=== PATIENT | female | born 1965 | race Caucasian/White ===

== ENCOUNTER 2022-07-26 19:14 | Observation (INO) | payer MEDICAID ==
[2022-07-26 20:14] LABS: Absolute Neutrophil Ct (ANC) 4.08 x10^3/uL (1.4-6.9); Basophil (Absolute #) 0.03 x10^3/uL (0-0.4); Eosinophil % 3.5 % (0.00-5.0); Eosinophil (Absolute #) 0.23 x10^3/uL (0-0.5); Hematocrit 36.2 % (35-47); Hemoglobin 10.8 g/dL (12.0-16.0); Lymphocyte (Absolute #) 1.81 x10^3/uL (1.0-4.6); Lymphocytes % 27.9 % (24.0-44.0); Mean Cell Volume 86.6 fL (78-100); Mean Corpuscular Hemoglobin 25.8 pg (26-32); Mean Corpuscular Hgb Concent. 29.8 g/dL (32-36); Mean Platelet Volume 9.7 fL (7.5-11.0); Monocyte (Absolute #) 0.32 x10^3/uL (0.0-1.3); Monocytes % 4.9 % (0.0-12.0); Neutrophil % 62.9 % (36.0-66.0); Platelet Count 317 x10^3/uL (150-450); Red Blood Count 4.18 x10^6/uL (4.1-5.4); Red Cell Distribution Width 15.6 % (11.5-14.0); White Blood Count 6.5 x10^3/uL (4.0-10.5)
[2022-07-26 20:41] LABS: ALBUMIN 3.7 g/dL (3.5-5.0); ALKALINE PHOSPHATASE 131 U/L (38-126); ANION GAP 8.5 MEQ/L (5-15); BLOOD UREA NITROGEN 10 mg/dL (7-17); CHLORIDE 101 mmol/L (98-107); Calcium 8.4 mg/dL (8.4-10.2); Carbon Dioxide 28 mmol/L (22-30); Creatinine 1 0.88 mg/dL (0.52-1.04); EST GLOMERULAR FILTRATION RATE > 60.0 ML/MIN; Glucose 199 mg/dL (74-106); NT PRO BNP 348 pg/mL (0-900); SGOT/AST 20 U/L (14-36); SGPT/ALT 17 U/L (0-35); SODIUM 133 mmol/L (137-145); Total Protein 6.8 g/dL (6.3-8.2)
--- NOTE | 2022-07-26 21:51 | ERPHSYRPT ---
- History of Present Illness Time Seen by Provider: 07/26/22 19:25 Historian: patient Exam Limitations: no limitations Patient Subjective Stated Complaint: pt states that for the last hour she has been having chest discomfort and states "i feel weird, like Im in outer space", statesleft hand feels funny, and she feels tired. states she takes lots of meds that make her dizzy. Triage Nursing Assessment: pt arrived by ambulance, transferred to bed from cot, pt is laying flat in bed, no sob, some CP she rates as 5/10. pt is in NSR on [address] monitor. Physician History: Patient is a 56-year-old female presents emergency department for evaluation of chest pain and dizziness. Chest pain lasted for approximately 1 hour. pain started approximately 1 hour prior to arrival. Patient called 911. EMS administered 481 mg aspirin. Chest pain described as an ache that is substernal. Pain rated 5 out of 10. No trauma no fever. Patient states pain radiates to her left arm and hand. Patient currently asymptomatic. No active chest pain. Symptoms are mild to moderate in intensity. No specific worsening improving factors. Patient denies a history of the same. She voices no other complaints or concerns at this time. Portions of this note were created with voice recognition technology. There may be grammatical, spelling, punctuation or sound alike errors Timing/Duration: today Activities at Onset: none Quality: aching Location: substernal Chest Pain Radiation: arm Severity of Pain-Max: moderate Severity of Pain-Current: mild Modifying Factors: Improves With: nothing Associated Symptoms: denies symptoms Prior Chest Pain/Cardiac Workup: no prior chest pain Nitro Today/Relief: no nitro taken today Aspirin Treatment Today: 81 mg x 4 Allergies/Adverse Reactions: No Known Drug Allergies Allergy (Unverified 07/26/22 19:32) Immunizations Up to Date: No Travel Risk - International Travel Have you traveled outside of the country in past 3 weeks: No - Coronavirus Screening Are you exhibiting any of the following symptoms?: No Close contact with a COVID-19 positive Pt in past 14-21 Days: No - Vaccine Status Have you recieved a Covid-19 vaccination: Yes Wall Insulation Sprayer: Unknown - Vaccination Dates Date of 2cond Vaccination (if applicable): unknown Dates if Unknown: unknown - Review of Systems Constitutional: No Symptoms, No Fever, No Chills Eyes: No Symptoms Ears, Nose, & Throat: No Symptoms Respiratory: No Symptoms, No Cough, No Dyspnea Cardiac: No Symptoms, No Chest Pain, No Edema, No Syncope Abdominal/Gastrointestinal: No Symptoms, No Abdominal Pain, No Nausea, No Vomiting, No Diarrhea Genitourinary Symptoms: No Symptoms, No Dysuria Musculoskeletal: No Symptoms, No Back Pain, No Neck Pain Skin: No Symptoms, No Rash Neurological: No Symptoms, No Dizziness, No Focal Weakness, No Sensory Changes Psychological: No Symptoms Endocrine: No Symptoms Hematologic/Lymphatic: No Symptoms Immunological/Allergic: No Symptoms All Other Systems: Reviewed and Negative - Past Medical History Pertinent Past Medical History: Yes Cardiac History: High Cholesterol, Hypertension Endocrine Medical History: Diabetes Type II, Hypothyroidism Psycho-Social History: Anxiety, Depression Other Medical History: PTSD - Past Surgical History Past Surgical History: Yes Gastrointestinal: Cholecystectomy, Hernia Repair Other Surgical History: breast reduction, eye and nose surgery - Social History Smoking Status: Never smoker Drug Use: none Patient Lives Alone: No - Nursing Vital Signs Nursing Vital Signs: Initial Vital Signs Temperature 97.2 F 07/26/22 19:15 Pulse Rate 74 07/26/22 19:15 Respiratory Rate 16 07/26/22 19:15 Blood Pressure 134/104 07/26/22 19:15 O2 Sat by Pulse Oximetry 97 07/26/22 19:15 Pain Scale Pain Intensity 0 - Physical Exam General Appearance: no apparent distress, alert Eye Exam: PERRL/EOMI, eyes nml inspection Ears, Nose, Throat Exam: normal ENT inspection, TMs normal, pharynx normal, moist mucous membranes Neck Exam: normal inspection, non-tender, supple, full range of motion Respiratory Exam: normal breath sounds, lungs clear, airway intact, No respiratory distress Cardiovascular Exam: regular rate/rhythm, normal heart sounds, normal peripheral pulses Gastrointestinal/Abdomen Exam: soft, normal bowel sounds, No tenderness, No mass Back Exam: normal inspection, No CVA tenderness, No vertebral tenderness Extremity Exam: normal inspection, normal range of motion Neurologic Exam: alert, oriented x 3, cooperative, normal mood/affect, sensation nml, No motor deficits Skin Exam: normal color, warm, dry Lymphatic Exam: No adenopathy SpO2 Interpretation: normal SpO2: 95 O2 Delivery: Room Air - Course Nursing assessment & vital signs reviewed: Yes EKG Interpreted by Me: RATE (72), Sinus Rhythm, NORMAL AXIS, NORMAL INTERVALS - Radiology Exams Chest X-ray Interpretation: Interpreted by me (Normal chest x-ray) Ordered Tests: Active Orders 24 hr Category Date Time Status Peg Driver STAT Care 07/26/22 19:35 Active EKG-ER Only STAT Care 07/26/22 19:34 Active IV Insertion STAT Care 07/26/22 19:34 Active Pulse Oximetry (ED) STAT Care 07/26/22 19:34 Active CHEST 1 VIEW (PORTABLE) Stat Exams 07/26/22 19:35 Taken CBC W DIFF Stat Lab 07/26/22 20:10 Completed CMP Stat Lab 07/26/22 20:10 Completed NT PRO BNP Stat Lab 07/26/22 20:10 Completed TROPONIN Q4H Lab 07/26/22 20:10 Completed TROPONIN Q4H Lab 07/26/22 23:55 Completed TROPONIN Q4H Lab 07/27/22 03:45 Ordered UA W/RFX UR CULTURE Stat Lab 07/26/22 21:33 Completed Transfer Order Routine Transfer 07/27/22 Ordered Medication Summary Discontinued Medications Generic Name Dose Route Start Last Admin Trade Name Freq PRN Reason Stop Dose Admin Nitroglycerin 1 gm 07/27/22 02:19 07/27/22 02:22 Nitroglycerin 1 Gm Packet TOP 07/27/22 02:20 1 gm STAT ONE Administration Nitroglycerin Confirm 07/27/22 02:22 Nitroglycerin 1 Gm Packet Administered 07/27/22 02:23 Dose 1 gm .ROUTE .STK-MED ONE Lab/Rad Data: Laboratory Result Diagrams 07/26/22 20:10 07/26/22 20:10 Laboratory Results 07/27/22 07/26/22 07/26/22 Range/Units 01: 23:55 21:33 WBC (4.0-10.5) x10^3/uL RBC (4.1-5.4) x10^6/uL Hgb (12.0-16.0) g/dL Hct (35-47) % MCV (78-100) fL MCH (26-32) pg MCHC (32-36) g/dL RDW (11.5-14.0) % Plt Count (150-450) x10^3/uL MPV (7.5-11.0) fL Gran % (36.0-66.0) % Immature Gran % (Auto) (0.00-0.4) % Nucleat RBC Rel Count (0.00-0.1) % Eos # (Auto) (0-0.5) x10^3/uL Immature Gran # (Auto) (0.00-0.03) x10^3u/L Absolute Lymphs (auto) (1.0-4.6) x10^3/uL Absolute Monos (auto) (0.0-1.3) x10^3/uL Absolute Nucleated RBC (0.00-0.01) x10^3u/L Lymphocytes % (24.0-44.0) % Monocytes % (0.0-12.0) % Eosinophils % (0.00-5.0) % Basophils % (0.0-0.4) % Absolute Granulocytes (1.4-6.9) x10^3/uL Basophils # (0-0.4) x10^3/uL Sodium (137-145) mmol/L Potassium (3.5-5.1) mmol/L Chloride (98-107) mmol/L Carbon Dioxide (22-30) mmol/L Anion Gap (5-15) MEQ/L BUN (7-17) mg/dL Creatinine (0.52-1.04) mg/dL Estimated GFR ML/MIN Glucose (74-106) mg/dL Calcium (8.4-10.2) mg/dL Total Bilirubin (0.2-1.3) mg/dL AST (14-36) U/L ALT (0-35) U/L Alkaline Phosphatase (38-126) U/L Troponin I < 0.012 (0.000-0.034) ng/mL NT-Pro-B Natriuret Pep (0-900) pg/mL Serum Total Protein (6.3-8.2) g/dL Albumin (3.5-5.0) g/dL Urine Color Yellow (Yellow) Urine Appearance Clear (Clear) Urine pH 6.5 (4.6-8.0) Ur Specific [place] >=1.030 A (1.005-1.030) Urine Protein Negative (Negative) Urine Glucose (UA) >=1000 A (Negative) mg/dL Urine Ketones Negative (Negative) Urine Blood Trace (Negative) Urine Nitrite Negative (Negative) Urine Bilirubin Negative (Negative) Urine Urobilinogen 0.2 (0.2) mg/dL Ur Leukocyte Esterase Negative (Negative) U Hyaline Cast (Auto) 0-2 (0-2) /LPF Urine Microscopic RBC 6-10 A (0-5) /HPF Urine Microscopic WBC 0-2 (0-5) /HPF Ur Epithelial Cells None Seen (None Seen) /HPF Urine Bacteria None Seen (None Seen) /HPF Urine Culture Reflexed NO (NO) Influenza Type A Ag NEGATIVE (NEGATIVE) Influenza Type B Ag NEGATIVE (NEGATIVE) RSV (PCR) NEGATIVE (Negative) SARS-CoV-2 (PCR) NEGATIVE (NEGATIVE) 07/26/22 07/26/22 07/26/22 Range/Units 20:10 20:10 20:10 WBC 6.5 (4.0-10.5) x10^3/uL RBC 4.18 (4.1-5.4) x10^6/uL Hgb 10.8 L (12.0-16.0) g/dL Hct 36.2 (35-47) % MCV 86.6 (78-100) fL MCH 25.8 L (26-32) pg MCHC 29.8 L (32-36) g/dL RDW 15.6 H (11.5-14.0) % Plt Count 317 (150-450) x10^3/uL MPV 9.7 (7.5-11.0) fL Gran % 62.9 (36.0-66.0) % Immature Gran % (Auto) 0.3 (0.00-0.4) % Nucleat RBC Rel Count 0.0 (0.00-0.1) % Eos # (Auto) 0.23 (0-0.5) x10^3/uL Immature Gran # (Auto) 0.02 (0.00-0.03) x10^3u/L Absolute Lymphs (auto) 1.81 (1.0-4.6) x10^3/uL Absolute Monos (auto) 0.32 (0.0-1.3) x10^3/uL Absolute Nucleated RBC 0.00 (0.00-0.01) x10^3u/L Lymphocytes % 27.9 (24.0-44.0) % Monocytes % 4.9 (0.0-12.0) % Eosinophils % 3.5 (0.00-5.0) % Basophils % 0.5 (0.0-0.4) % Absolute Granulocytes 4.08 (1.4-6.9) x10^3/uL Basophils # 0.03 (0-0.4) x10^3/uL Sodium 133 L (137-145) mmol/L Potassium 4.0 (3.5-5.1) mmol/L Chloride 101 (98-107) mmol/L Carbon Dioxide 28 (22-30) mmol/L Anion Gap 8.5 (5-15) MEQ/L BUN 10 (7-17) mg/dL Creatinine 0.88 (0.52-1.04) mg/dL Estimated GFR > 60.0 ML/MIN Glucose 199 H (74-106) mg/dL Calcium 8.4 (8.4-10.2) mg/dL Total Bilirubin 0.30 (0.2-1.3) mg/dL AST 20 (14-36) U/L ALT 17 (0-35) U/L Alkaline Phosphatase 131 H (38-126) U/L Troponin I < 0.012 (0.000-0.034) ng/mL NT-Pro-B Natriuret Pep 348 (0-900) pg/mL Serum Total Protein 6.8 (6.3-8.2) g/dL Albumin 3.7 (3.5-5.0) g/dL Urine Color (Yellow) Urine Appearance (Clear) Urine pH (4.6-8.0) Ur Specific [place] (1.005-1.030) Urine Protein (Negative) Urine Glucose (UA) (Negative) mg/dL Urine Ketones (Negative) Urine Blood (Negative) Urine Nitrite (Negative) Urine Bilirubin (Negative) Urine Urobilinogen (0.2) mg/dL Ur Leukocyte Esterase (Negative) U Hyaline Cast (Auto) (0-2) /LPF Urine Microscopic RBC (0-5) /HPF Urine Microscopic WBC (0-5) /HPF Ur Epithelial Cells (None Seen) /HPF Urine Bacteria (None Seen) /HPF Urine Culture Reflexed (NO) Influenza Type A Ag (NEGATIVE) Influenza Type B Ag (NEGATIVE) RSV (PCR) (Negative) SARS-CoV-2 (PCR) (NEGATIVE) - Progress Progress: improved Air Movement: good Progress Note: Patient's heart score is 4 COVID-negative. Case discussed with Dr. Steven excepts admission to [facility]. Patient is a 56-year-old female presents to our emergency department for evaluation of chest pain. Chest pain started prior to arrival. Patient's pain was acute in nature. Symptoms were moderate in intensity. Symptoms are moderate in complexity. Patient has comorbidities that contribute to her symptoms including diabetes hypercholesterolemia and high blood pressure. Patient has a BMI of 45. Test ordered. Test results reviewed. Test results were used to formulate medical decision making. Patient received 4 81 mg tablets of aspirin via EMS. Pain well controlled at this time. Nitropaste administered as well in our ED. Troponin negative x2. Heart score 4. Patient will be admitted for further evaluation and treatment. Level of EM service provided was moderate. Complexity of the problem is moderate. Complexity of data reviewed and analyzed is moderate. Complicati on/morbidity/mortality was moderate. No critical care time. Patient serves as an independent historian. Patient agrees to admission at [facility] for further evaluation and treatment. Case discussed Dr. Steven who accepts admission. Portions of this note were created with voice recognition technology. There may be grammatical, spelling, punctuation or sound alike errors Blood Culture(s) Obtained: No Antibiotics given: No Discussed with : Marilyn Will see patient in: office Counseled pt/family regarding: lab results, diagnosis, rad results - Departure Departure Disposition: Observation Clinical Impression: ACS (acute coronary syndrome), Chest pain, Dizziness Condition: Stable Critical Care Time: No Referrals: SHYLA MURRELL, ADMINISTRATION DEAN [Primary Care Provider] - Follow up/PCP as directed
[2022-07-26 22:04] LABS: Appearance Clear (Clear); Bacteria None Seen /HPF (None Seen); Bilirubin Negative (Negative); Blood Trace (Negative); Epithelial Cells None Seen /HPF (None Seen); Glucose, Urine >=1000 mg/dL (Negative); Hyaline Casts 0-2 /LPF (0-2); Ketones Negative (Negative); Leukocyte Esterase Negative (Negative); Nitrite Negative (Negative); Ph 6.5 (4.6-8.0); Protein,Urine Dip Negative (Negative); Specific Gravity >=1.030 (1.005-1.030); Urobilinogen 0.2 mg/dL (0.2); WBC 0-2 /HPF (0-5)
[2022-07-26 22:12] LABS: ADD URINE CULTURE? NO (NO)
[2022-07-27 01:59] LABS: INFLUENZA A NEGATIVE (NEGATIVE); INFLUENZA B NEGATIVE (NEGATIVE); RESPIRATORY SYNCTIAL VIRUS NEGATIVE (Negative); SARS-CoV-2 Xpert Express NEGATIVE (NEGATIVE)
[2022-07-27] MEDS ORDERED: NITRO-BID 2% UD PACKETS TOP ONE (02:19)
[2022-07-27] MEDS ORDERED: NITRO-BID 2% UD PACKETS ONE (02:22)
[2022-07-27] MEDS ORDERED: MAALOX ES 30 ML UNIT DOSE PO PRN (02:40)
[2022-07-27] MEDS ORDERED: Senokot-S Tablet PO PRN (02:40)
[2022-07-27] MEDS ORDERED: Zofran 4 MG/2 ML VIAL IV PRN (02:40)
[2022-07-27] MEDS ORDERED: MILK OF MAGNESIA 30 ML PO PRN (02:40)
[2022-07-27] MEDS: TYLENOL 325 MG PO PRN ×2 (04:39→16:47)
[2022-07-27 04:56] LABS: Risk Ratio 2.5
--- NOTE | 2022-07-27 08:40 | XRAY ---
Indication: Chest pain. Comparison: None Portable chest demonstrates normal heart and lungs. Bony thorax intact with mild degenerative changes.
--- NOTE | 2022-07-27 09:44 | PCM.HP ---
History of Present Illness - Chief Complaint Chief Complaint: ACS, Chest pain History of Present Illness: is a 56 year old female patient of [employer] Amira Womack who presented to ER c/o chest pain and dizziness. Chest pain lasted for approximately 1 hour. pain started approximately 1 hour prior to arrival. Patient called 911. EMS administered 481 mg aspirin. Chest pain described as an ache in substernal area into left arm rates it at 5 out of 10, denies trauma ,no fever. Patient currently asymptomatic. No specific worsening improving factors. Patient denies a history of the same. Staes her Mother had a heart attack at age 61.Patient admits to her nurse on admit to [facility] that she took 6 of 8 Trazadone tabs last week hoping she would not wake up.States she had a fight with her girlfriend. Currently denies thoughts of suicide. States she has been seeing a councelor at [facility] in [place]. - Review of Systems Constitutional: No Symptoms Eyes: No Symptoms Ears, Nose, & Throat: No Symptoms Respiratory: No Symptoms Cardiac: Chest Pain Abdominal/Gastrointestinal: No Symptoms Genitourinary Symptoms: Vaginal Discharge (white yeast per patient) Musculoskeletal: Other (ribs tender left side if pushes on them) Skin: No Symptoms Neurological: Headache (sinus pressure) Psychological: Other (see HPI) Endocrine: No Symptoms Hematologic/Lymphatic: No Symptoms Medications & Allergies Home Medications: Home Medication List Atorvastatin Calcium [Lipitor] 80 mg PO DAILY 07/27/22 [History Confirmed 07/27/22] Buspirone HCl 30 mg PO BID 07/27/22 [History Confirmed 07/27/22] Dicyclomine HCl 20 mg [Bentyl 20 mg] 20 mg PO QID 07/27/22 [History Confirmed 07/27/22] Empagliflozin [Jardiance] 25 mg PO DAILY 07/27/22 [History Confirmed 07/27/22] Escitalopram Oxalate [Lexapro] 10 mg PO DAILY 07/27/22 [History Confirmed 07/27/22] Fluconazole 100 mg [Diflucan 100 MG] 150 mg PO DAILY #1 tablet 07/27/22 [Rx] Hydrochlorothiazide 25 mg [hydroDIURIL 25 MG] 25 mg PO DAILY 07/27/22 [History Confirmed 07/27/22] Insulin Glargine [Lantus Insulin] 38 unit SQ DAILY 07/27/22 [History Confirmed 07/27/22] Levothyroxine Sodium 137 mcg PO DAILY 07/27/22 [History Confirmed 07/27/22] Metformin HCl [Metformin ER Osmotic] 1,000 mg PO BID 07/27/22 [History Confirmed 07/27/22] Metoprolol Tartrate 50 mg [Lopressor 50 MG] 50 mg PO BID 07/27/22 [History Confirmed 07/27/22] Omeprazole 40 mg PO DAILY 07/27/22 [History Confirmed 07/27/22] Primidone 50 MG [Mysoline 50Mg] 50 mg PO DAILY 07/27/22 [History Confirmed 07/27/22] Trazodone HCl 50 mg [Desyrel 50 mg] 100 mg PO HS 07/27/22 [History Confirmed 07/27/22] Allergies/Adverse Reactions: Allergies Allergy/AdvReac Type Severity Reaction Status Date / Time No Known Drug Allergies Allergy Verified 07/27/22 02:58 - Past Medical History Past Medical History: Yes Neurological History: No Pertinent History ENT History: No Pertinent History Cardiac History: High Cholesterol, Hypertension Respiratory History: No Pertinent History Endocrine Medical History: Diabetes Type II, Hypothyroidism Musculoskelatal History: No Pertinent History GI Medical History: No Pertinent History History: No Pertinent History Pyscho-Social History: Anxiety, Depression Reproductive Disorders: No Pertinent History Comment: PTSD - Female History Are you now?: No - Past Surgical History Past Surgical History: Yes Neuro Surgical History: No Pertinent History Cardiac History: No Pertinent History Respiratory Surgery: No Pertinent History GI Surgical History: Cholecystectomy, Hernia Repair Genitourinary Surgical Hx: No Pertinent History Musculskeletal Surgical Hx: No Pertinent History Female Surgical History: No Pertinent History Other Surgical History: breast reduction, eye and nose surgery - Social History Smoking Status: Never smoker Exposure to second hand smoke: No Alcohol: Rarely Drug Use: none - Physical Exam Vital Signs: Vital Signs - 24 hr Temp Pulse Resp BP Pulse Ox 07/27/22 07:36 97.5 F 78 18 129/71 92 L 07/27/22 02:46 97.5 F 78 18 167/67 95 07/27/22 02:26 95 07/27/22 02:00 73 20 158/82 95 07/27/22 01:00 80 20 169/85 94 L 07/27/22 00:00 97 H 18 138/62 97 07/26/22 23:42 98 H 18 118/53 98 07/26/22 21:36 74 18 95 07/26/22 20:51 94 L 07/26/22 19:15 97.2 F 74 16 134/104 97 General Appearance: no apparent distress Neurologic Exam: alert, oriented x 3, cooperative, normal mood/affect (good eye contact,pleasant) Eye Exam: eyes nml inspection Ears, Nose, Throat Exam: normal ENT inspection Neck Exam: normal inspection Respiratory Exam: normal breath sounds Cardiovascular Exam: regular rate/rhythm Gastrointestinal/Abdomen Exam: soft (nontender) Pelvic Exam: not done Rectal Exam: not done Back Exam: other (tender left sterno costal margins) Skin Exam: normal color, warm Results - Labs Lab/Micro Results: Lab Results-Last 24 Hours 07/26/22 07/26/22 07/26/22 Range/Units 20:10 20:10 20:10 WBC 6.5 (4.0-10.5) x10^3/uL RBC 4.18 (4.1-5.4) x10^6/uL Hgb 10.8 L (12.0-16.0) g/dL Hct 36.2 (35-47) % MCV 86.6 (78-100) fL MCH 25.8 L (26-32) pg MCHC 29.8 L (32-36) g/dL RDW 15.6 H (11.5-14.0) % Plt Count 317 (150-450) x10^3/uL MPV 9.7 (7.5-11.0) fL Gran % 62.9 (36.0-66.0) % Immature Gran % (Auto) 0.3 (0.00-0.4) % Nucleat RBC Rel Count 0.0 (0.00-0.1) % Eos # (Auto) 0.23 (0-0.5) x10^3/uL Immature Gran # (Auto) 0.02 (0.00-0.03) x10^3u/L Absolute Lymphs (auto) 1.81 (1.0-4.6) x10^3/uL Absolute Monos (auto) 0.32 (0.0-1.3) x10^3/uL Absolute Nucleated RBC 0.00 (0.00-0.01) x10^3u/L Lymphocytes % 27.9 (24.0-44.0) % Monocytes % 4.9 (0.0-12.0) % Eosinophils % 3.5 (0.00-5.0) % Basophils % 0.5 (0.0-0.4) % Absolute Granulocytes 4.08 (1.4-6.9) x10^3/uL Basophils # 0.03 (0-0.4) x10^3/uL Sodium 133 L (137-145) mmol/L Potassium 4.0 (3.5-5.1) mmol/L Chloride 101 (98-107) mmol/L Carbon Dioxide 28 (22-30) mmol/L Anion Gap 8.5 (5-15) MEQ/L BUN 10 (7-17) mg/dL Creatinine 0.88 (0.52-1.04) mg/dL Estimated GFR > 60.0 ML/MIN Glucose 199 H (74-106) mg/dL POC Glucometer (74 to 106) mg/dL Calcium 8.4 (8.4-10.2) mg/dL Total Bilirubin 0.30 (0.2-1.3) mg/dL AST 20 (14-36) U/L ALT 17 (0-35) U/L Alkaline Phosphatase 131 H (38-126) U/L Troponin I < 0.012 (0.000-0.034) ng/mL NT-Pro-B Natriuret Pep 348 (0-900) pg/mL Serum Total Protein 6.8 (6.3-8.2) g/dL Albumin 3.7 (3.5-5.0) g/dL Triglycerides (30-150) mg/dL Cholesterol (50-200) mg/dL LDL Cholesterol (30-100) mg/dL HDL Cholesterol (40-60) mg/dL Heart Disease Risk Ratio Urine Color (Yellow) Urine Appearance (Clear) Urine pH (4.6-8.0) Ur Specific [place] (1.005-1.030) Urine Protein (Negative) Urine Glucose (UA) (Negative) mg/dL Urine Ketones (Negative) Urine Blood (Negative) Urine Nitrite (Negative) Urine Bilirubin (Negative) Urine Urobilinogen (0.2) mg/dL Ur Leukocyte Esterase (Negative) U Hyaline Cast (Auto) (0-2) /LPF Urine Microscopic RBC (0-5) /HPF Urine Microscopic WBC (0-5) /HPF Ur Epithelial Cells (None Seen) /HPF Urine Bacteria (None Seen) /HPF Urine Culture Reflexed (NO) Influenza Type A Ag (NEGATIVE) Influenza Type B Ag (NEGATIVE) RSV (PCR) (Negative) SARS-CoV-2 (PCR) (NEGATIVE) 07/26/22 07/26/22 07/27/22 Range/Units 21:33 23:55 01:20 WBC (4.0-10.5) x10^3/uL RBC (4.1-5.4) x10^6/uL Hgb (12.0-16.0) g/dL Hct (35-47) % MCV (78-100) fL MCH (26-32) pg MCHC (32-36) g/dL RDW (11.5-14.0) % Plt Count (150-450) x10^3/uL MPV (7.5-11.0) fL Gran % (36.0-66.0) % Immature Gran % (Auto) (0.00-0.4) % Nucleat RBC Rel Count (0.00-0.1) % Eos # (Auto) (0-0.5) x10^3/uL Immature Gran # (Auto) (0.00-0.03) x10^3u/L Absolute Lymphs (auto) (1.0-4.6) x10^3/uL Absolute Monos (auto) (0.0-1.3) x10^3/uL Absolute Nucleated RBC (0.00-0.01) x10^3u/L Lymphocytes % (24.0-44.0) % Monocytes % (0.0-12.0) % Eosinophils % (0.00-5.0) % Basophils % (0.0-0.4) % Absolute Granulocytes (1.4-6.9) x10^3/uL Basophils # (0-0.4) x10^3/uL Sodium (137-145) mmol/L Potassium (3.5-5.1) mmol/L Chloride (98-107) mmol/L Carbon Dioxide (22-30) mmol/L Anion Gap (5-15) MEQ/L BUN (7-17) mg/dL Creatinine (0.52-1.04) mg/dL Estimated GFR ML/MIN Glucose (74-106) mg/dL POC Glucometer (74 to 106) mg/dL Calcium (8.4-10.2) mg/dL Total Bilirubin (0.2-1.3) mg/dL AST (14-36) U/L ALT (0-35) U/L Alkaline Phosphatase (38-126) U/L Troponin I < 0.012 (0.000-0.034) ng/mL NT-Pro-B Natriuret Pep (0-900) pg/mL Serum Total Protein (6.3-8.2) g/dL Albumin (3.5-5.0) g/dL Triglycerides (30-150) mg/dL Cholesterol (50-200) mg/dL LDL Cholesterol (30-100) mg/dL HDL Cholesterol (40-60) mg/dL Heart Disease Risk Ratio Urine Color Yellow (Yellow) Urine Appearance Clear (Clear) Urine pH 6.5 (4.6-8.0) Ur Specific [place] >=1.030 A (1.005-1.030) Urine Protein Negative (Negative) Urine Glucose (UA) >=1000 A (Negative) mg/dL Urine Ketones Negative (Negative) Urine Blood Trace (Negative) Urine Nitrite Negative (Negative) Urine Bilirubin Negative (Negative) Urine Urobilinogen 0.2 (0.2) mg/dL Ur Leukocyte Esterase Negative (Negative) U Hyaline Cast (Auto) 0-2 (0-2) /LPF Urine Microscopic RBC 6-10 A (0-5) /HPF Urine Microscopic WBC 0-2 (0-5) /HPF Ur Epithelial Cells None Seen (None Seen) /HPF Urine Bacteria None Seen (None Seen) /HPF Urine Culture Reflexed NO (NO) Influenza Type A Ag NEGATIVE (NEGATIVE) Influenza Type B Ag NEGATIVE (NEGATIVE) RSV (PCR) NEGATIVE (Negative) SARS-CoV-2 (PCR) NEGATIVE (NEGATIVE) 07/27/22 07/27/22 07/27/22 Range/Units 04:15 04:15 07:14 WBC (4.0-10.5) x10^3/uL RBC (4.1-5.4) x10^6/uL Hgb (12.0-16.0) g/dL Hct (35-47) % MCV (78-100) fL MCH (26-32) pg MCHC (32-36) g/dL RDW (11.5-14.0) % Plt Count (150-450) x10^3/uL MPV (7.5-11.0) fL Gran % (36.0-66.0) % Immature Gran % (Auto) (0.00-0.4) % Nucleat RBC Rel Count (0.00-0.1) % Eos # (Auto) (0-0.5) x10^3/uL Immature Gran # (Auto) (0.00-0.03) x10^3u/L Absolute Lymphs (auto) (1.0-4.6) x10^3/uL Absolute Monos (auto) (0.0-1.3) x10^3/uL Absolute Nucleated RBC (0.00-0.01) x10^3u/L Lymphocytes % (24.0-44.0) % Monocytes % (0.0-12.0) % Eosinophils % (0.00-5.0) % Basophils % (0.0-0.4) % Absolute Granulocytes (1.4-6.9) x10^3/uL Basophils # (0-0.4) x10^3/uL Sodium (137-145) mmol/L Potassium (3.5-5.1) mmol/L Chloride (98-107) mmol/L Carbon Dioxide (22-30) mmol/L Anion Gap (5-15) MEQ/L BUN (7-17) mg/dL Creatinine (0.52-1.04) mg/dL Estimated GFR ML/MIN Glucose (74-106) mg/dL POC Glucometer 163 H (74 to 106) mg/dL Calcium (8.4-10.2) mg/dL Total Bilirubin (0.2-1.3) mg/dL AST (14-36) U/L ALT (0-35) U/L Alkaline Phosphatase (38-126) U/L Troponin I < 0.012 (0.000-0.034) ng/mL NT-Pro-B Natriuret Pep (0-900) pg/mL Serum Total Protein (6.3-8.2) g/dL Albumin (3.5-5.0) g/dL Triglycerides 149 (30-150) mg/dL Cholesterol 123 (50-200) mg/dL LDL Cholesterol 58 (30-100) mg/dL HDL Cholesterol 49 (40-60) mg/dL Heart Disease Risk Ratio 2.5 Urine Color (Yellow) Urine Appearance (Clear) Urine pH (4.6-8.0) Ur Specific [place] (1.005-1.030) Urine Protein (Negative) Urine Glucose (UA) (Negative) mg/dL Urine Ketones (Negative) Urine Blood (Negative) Urine Nitrite (Negative) Urine Bilirubin (Negative) Urine Urobilinogen (0.2) mg/dL Ur Leukocyte Esterase (Negative) U Hyaline Cast (Auto) (0-2) /LPF Urine Microscopic RBC (0-5) /HPF Urine Microscopic WBC (0-5) /HPF Ur Epithelial Cells (None Seen) /HPF Urine Bacteria (None Seen) /HPF Urine Culture Reflexed (NO) Influenza Type A Ag (NEGATIVE) Influenza Type B Ag (NEGATIVE) RSV (PCR) (Negative) SARS-CoV-2 (PCR) (NEGATIVE) Accuchecks Date 07/27/22 Time 07:36 - Radiology Impressions Radiology Exams & Impressions: Radiology Procedures Category Date Time Status CHEST 1 VIEW (PORTABLE) Stat Exams 07/26/22 19:35 Completed - Other Procedures and Tests Respiratory Therapy 07/28/22 05:00 EKG ROUTINE 07/29/22 05:00 EKG ROUTINE 07/30/22 05:00 EKG ROUTINE Assessment/Plan (1) Chest pain Current Visit: Yes Status: Acute Qualifiers: Chest pain type: other chest pain Qualified Code(s): R07.89 - Other chest pain; R07.8 - Other chest pain Assessment & Plan: chest wall pain reproducible Code(s): R07.9 - CHEST PAIN, UNSPECIFIED (2) Family history of coronary artery disease Current Visit: Yes Status: Suspected Assessment & Plan: mother [place] age 61 yrs Code(s): Z82.49 - FAMILY HX OF ISCHEM HEART DIS AND OTH DIS OF THE CIRC SYS (3) Hx of suicide attempt Current Visit: Yes Status: Resolved Assessment & Plan: atempted overdose with Trazadone 1 week ago. Evaluation with [facility] Telehealth visit and contract with aylin Baum to discharge home and follow up as outpatient. Code(s): Z91.51 - PERSONAL HISTORY OF SUICIDAL BEHAVIOR
[2022-07-27] MEDS ORDERED: FLUZONE QUAD 2022-2023 SYRINGE IM ONE (10:00)
[2022-07-27] MEDS ORDERED: ZOCOR 20MG PO SCH (11:00)
[2022-07-27] MEDS ORDERED: Lexapro PO SCH (11:00)
[2022-07-27] MEDS ORDERED: Lopressor 50 MG PO SCH (11:00)
[2022-07-27] MEDS ORDERED: SYNTHROID 25 MCG PO SCH (11:00)
[2022-07-27] MEDS ORDERED: Protonix 40MG Tablet PO SCH (11:00)
[2022-07-27] MEDS ORDERED: JARDIANCE PO SCH (11:00)
[2022-07-27] MEDS ORDERED: SYNTHROID 112 MCG PO SCH (11:00)
[2022-07-27] MEDS ORDERED: Glucophage XR 500 MG PO SCH (11:00)
[2022-07-27] MEDS ORDERED: MYSOLINE 50MG PO SCH (11:00)
[2022-07-27] MEDS ORDERED: Lantus Insulin SQ SCH (11:00)
[2022-07-27] MEDS ORDERED: hydroDIURIL 25 MG PO SCH (11:00)
[2022-07-27] MEDS ORDERED: BUSPAR 5 MG PO SCH (11:00)
[2022-07-27] MEDS: BENTYL 20 MG PO SCH ×2 (12:40→16:38)
[2022-07-27 17:00] VITALS: BP 166/101; PULSE 74; O2SAT 94
[2022-07-27] MEDS ORDERED: Diflucan 100 MG PO ONE (20:00)
--- NOTE | 2022-07-27 20:32 | PCM.DCORD ---
- Discharge Condition: Stable Prescriptions: New Fluconazole 100 mg [Diflucan 100 MG] 150 mg PO DAILY #1 tablet Continue Hydrochlorothiazide 25 mg [hydroDIURIL 25 MG] 25 mg PO DAILY Trazodone HCl 50 mg [Desyrel 50 mg] 100 mg PO HS Escitalopram Oxalate [Lexapro] 10 mg PO DAILY Primidone 50 MG [Mysoline 50Mg] 50 mg PO DAILY Empagliflozin [Jardiance] 25 mg PO DAILY Dicyclomine HCl 20 mg [Bentyl 20 mg] 20 mg PO QID Metoprolol Tartrate 50 mg [Lopressor 50 MG] 50 mg PO BID Omeprazole 40 mg PO DAILY Atorvastatin Calcium [Lipitor] 80 mg PO DAILY Metformin HCl [Metformin ER Osmotic] 1,000 mg PO BID Buspirone HCl 30 mg PO BID Levothyroxine Sodium 137 mcg PO DAILY Insulin Glargine [Lantus Insulin] 38 unit SQ DAILY Additional Instructions: [facility] contract signed per Telehealth eval prior to discharge.PHONE NUMBER TO [employer]- [phone] Follow up with: SHYLA MURRELL [employer] WORK[employer] [Primary Care Provider] -
[2022-07-27] MEDS ORDERED: NON-FORMULARY ITEM (Metformin Hcl [Metformin Er Osmotic] 1,000 MG Tab.Er.24) PO SCH (22:00)
[2022-07-27] MEDS ORDERED: NON-FORMULARY ITEM (Buspirone Hcl [Buspirone Hcl] 30 MG Tablet) PO SCH (22:00)
[2022-07-27] MEDS ORDERED: DESYREL 50 MG PO SCH (22:00)
[2022-07-28] MEDS ORDERED: NON-FORMULARY ITEM (Atorvastatin Calcium [Lipitor] 80 MG Tablet) PO SCH (10:00)
[2022-07-28] MEDS ORDERED: NON-FORMULARY ITEM (Omeprazole [Omeprazole] 40 MG Capsule.Dr) PO SCH (10:00)
[2022-07-28] MEDS ORDERED: NON-FORMULARY ITEM (Levothyroxine Sodium [Levothyroxine Sodium] 137 MCG Tablet) PO SCH (10:00)
== END 2022-07-27 21:20 | disposition home or self-care (01) ==
LOC: ED 19:14 → MED SURG 07-27 02:38
PROVIDERS: ADMIT Family Medicine; ATTEND Family Medicine
DX: R07.9 Chest pain, unspecified (principal); I24.9 Acute ischemic heart disease, unspecified; R42 Dizziness and giddiness; Z79.899 Other long term (current) drug therapy; Z20.828 Contact with and (suspected) exposure to other viral communicable diseases; E78.5 Hyperlipidemia, unspecified; I10 Essential (primary) hypertension; E11.9 Type 2 diabetes mellitus without complications; E03.9 Hypothyroidism, unspecified; F41.9 Anxiety disorder, unspecified; Z82.49 Family history of ischemic heart disease and other diseases of the circulatory system; Z91.51 Personal history of suicidal behavior
CPT/HCPCS: 0241U; 36000; 36415; 71045; 80053; 80061; 81001; 82947; 83036; 83721; 83880; 84484; 85025; 93005; 93041; 94760; G0008; 90686; 93268; 99285; A9270-GY; G0378